=== PATIENT | female | born 1985 | race African-American/Black ===

== ENCOUNTER 2020-10-14 15:28 | Emergency (ER) | payer OTHER ==
[~2020-10-14] VITALS: Ht 167.6 cm; Wt 97.7 kg
[2020-10-14 16:05] VITALS: BP 137/82
[2020-10-14] MEDS ORDERED: HYDROcodone/APAP 5/325MG 1 TAB TABLET PO ONE (16:30)
--- NOTE | 2020-10-14 16:30 | PHYS DOC ---
Past Medical History Past Medical History: No Pertinent History Past Surgical History: No Surgical History Smoking Status: Never Smoker Alcohol Use: Rarely General Adult EDM: Chief Complaint: UPPER EXTREMITY INJURY HPI: HPI: Patient is a 35 year old female who presents with states she slipped and fell on her left upper arm. She is complaining of bicep pain. She is having to hold her arm at a 90 degree angle. She states that she tries to flex and move the arm up at the elbow that it causes her too much pain. She has tenderness to the bicep with palpation but there is no lump or swelling that I can tell at this time. No bruising. She rates her pain at a 10 out of 10 with movement but no radiation. She states is a sharp aching pain. Review of Systems: Review of Systems: Constitutional: Denies fever or chills. [] Eyes: Denies change in visual acuity. [] HENT: Denies nasal congestion or sore throat. [] Respiratory: Denies cough or shortness of breath. [] Cardiovascular: Denies chest pain or edema. [] GI: Denies abdominal pain, nausea, vomiting, bloody stools or diarrhea. [] : Denies dysuria. [] Musculoskeletal: Denies back pain or joint pain. +Left bicep pain [] Integument: Denies rash. [] Neurologic: Denies headache, focal weakness or sensory changes. [] Endocrine: Denies polyuria or polydipsia. [] Lymphatic: Denies swollen glands. [] Psychiatric: Denies depression or anxiety. [] Heart Score: Risk Factors: Risk Factors: DM, Current or recent (<one month) smoker, HTN, HLP, family history of CAD, obesity. Risk Scores: Score 0 - 3: 2.5% MACE over next 6 weeks - Discharge Home Score 4 - 6: 20.3% MACE over next 6 weeks - Admit for Clinical Observation Score 7 - 10: 72.7% MACE over next 6 weeks - Early Invasive Strategies Current Medications: Current Medications Medications (Trade) Dose Ordered Sig/Nura Start Time Stop Time Status Last Admin Dose Admin Acetaminophen/ Hydrocodone Bitart (Lortab 5/325) 1 tab 1X ONCE 10/14/20 16:30 10/14/20 16:31 Allergies: Allergies: Allergies Coded Allergies Type Severity Reaction Last Updated Verified No Known Drug Allergies 10/14/20 No Physical Exam: PE: Constitutional: Well developed, well nourished, no acute distress, non-toxic appearance. [] HENT: Normocephalic, atraumatic, bilateral external ears normal, oropharynx moist, no oral exudates, nose normal. [] Eyes: PERRLA, EOMI, conjunctiva normal, no discharge. [] Neck: Normal range of motion, no tenderness, supple, no stridor. [] Cardiovascular:Heart rate regular rhythm, no murmur [] Lungs & Thorax: Bilateral breath sounds clear to auscultation [] Abdomen: Bowel sounds normal, soft, no tenderness, no masses, no pulsatile masses. [] Skin: Warm, dry, no erythema, no rash. [] Back: No tenderness, no CVA tenderness. [] Extremities: Left bicep tenderness, no cyanosis, no clubbing, unable to assess ROM intact, no edema. [] Neurologic: Alert and oriented X 3, normal motor function, normal sensory function, no focal deficits noted. [] Psychologic: Affect normal, judgement normal, mood normal. [] Current Patient Data: Vital Signs: Vital Signs Date Time Temp Pulse Resp B/P (MAP) Pulse Ox O2 Delivery O2 Flow Rate FiO2 10/14/20 16:05 98.0 82 20 137/82 (100) 100 Room Air 98.0 EKG: EKG: [] Radiology/Procedures: Radiology/Procedures: [] Impression: [facility] [address] [place] [address] IMAGING REPORT Signed PATIENT: JEREMY MARTÍNEZCOUNT: [id number] : 1985 LOCATION: ER AGE: 35 SEX: F EXAM STATUS: PRE ER ORD. PHYSICIAN: MELLY UNR APRN REASON: pain after falling on arm PROCEDURE: HUMERUS LEFT EXAM: AP and lateral views left humerus DATE: 10/14/2020 4:16 PM INDICATION: Reason: pain after falling on arm / Spl. Instructions: / History: COMPARISON: No Prior FINDINGS/ IMPRESSION: Transverse fracture of the left mid shaft humerus is essentially nondisplaced Electronically signed by: Aniceto Hunter MD (10/14/2020 5:07 PM) [id number] DICTATED and SIGNED BY: ANICETO HUNTER MD DATE: 10/14/20 [id number] Course & Med Decision Making: Course & Med Decision Making Pertinent Labs and Imaging studies reviewed. (See chart for details) See HPI. Alert and oriented x4. Speaks in full complete sentences. Skin pink warm and dry. Radial pulse strong and present. No deformity, joint deformity or swelling, redness, lumps, swelling. Full range of motion in strength in the hand and can make a fist. Full range of motion of the wrist, elbow and shoulde r. Patient is unable to show me if she has any laxity in the left elbow to see if she can pull the arm back up due to pain. Patient states that when she flexes the bicep muscle it is very tender and painful. Patient is placed in a arm sling. She is given Cullen in the ED. Patient has a Humerus Transverse Fx and is placed in a upper arm sugar tong with a arm sling. Patient follow-up with orthopedics. Splint assessment: Neurovascularly intact post splint replacement with good fit. Patient's extremity symptoms have stabilized well they have been evaluated in the department and are appropriate for outpatient follow-up. No evidence of compartment syndrome, neurologic injury, vascular injury, open joint, open fracture, tendon laceration, or foreign body. [] Dragon Disclaimer: Dragon Disclaimer: This electronic medical record was generated, in whole or in part, using a voice recognition dictation system. Departure Departure Impression: Primary Impression: Humerus lesion, left Disposition: 01 DC HOME SELF CARE/HOMELESS Condition: STABLE Referrals: ANU MONDRAGON MD Patient Instructions: Humerus Fracture, Treated with Immobilization Additional Instructions: Follow-up with Dr. Mondragon by calling the office on Saturday morning to get a appointment for your humerus fracture. Wear the arm sling. Take medication as prescribed and with food. Remember this medication will make you sleepy so do not drive, work or drink alcohol on this medication. Use ice to help with pain also. Scripts Hydrocodone/Apap 5-325 (NORCO 5-325 TABLET) 1 Each Tablet 1 TAB PO PRN Q6HRS PRN for PAIN, #15 TAB 0 Refills Prov: MELLY NUR APRN 10/14/20 MELLY NUR APRN Oct 14, 2020 16:30
--- NOTE | 2020-10-14 17:10 | RAD ---
EXAM: AP and lateral views left humerus DATE: 10/14/2020 4:16 PM INDICATION: Reason: pain after falling on arm / Spl. Instructions: / History: COMPARISON: No Prior FINDINGS/ IMPRESSION: Transverse fracture of the left mid shaft humerus is essentially nondisplaced Electronically signed by: Aniceto Beckett MD (10/14/2020 5:07 PM) [id number]
[2020-10-14] MEDS ORDERED: HYDR-3164 PO (17:21)
== END 2020-10-14 18:03 | disposition home or self-care (01) ==
LOC: ER 15:28
DX: S42.322A Displaced transverse fracture of shaft of humerus, left arm, initial encounter for closed fracture (principal); W01.0XXA Fall on same level from slipping, tripping and stumbling without subsequent striking against object, initial encounter; Y93.89 Activity, other specified; Y92.89 Other specified places as the place of occurrence of the external cause; Y99.8 Other external cause status
CPT/HCPCS: 29105; 73060; 99283; A4565